=== PATIENT | female | born 1940 | race Caucasian/White ===

== ENCOUNTER 2017-10-24 12:11 | Observation (INO) | payer MEDICARE, OTHER ==
[~2017-10-24] VITALS: Ht 157.5 cm; Wt 62.0 kg
[2017-10-24 13:04] VITALS: BP 189/67
[2017-10-24] MEDS ORDERED: LISI-167 PO (13:16)
[2017-10-24] MEDS ORDERED: ESTR0.5T PO (13:16)
[2017-10-24] MEDS ORDERED: LEVO50TA PO (13:16)
[2017-10-24 13:30] LABS: BASOPHILS # (AUTO) 0.03 x10^3/uL (0-0.1); BASOPHILS % (AUTO) 1 % (0-1); EOSINOPHILS # (AUTO) 0.05 x10^3/uL (0-0.4); EOSINOPHILS % (AUTO) 1 % (1-7); LYMPHOCYTES # (AUTO) 1.96 x10^3/uL (1-3.4); LYMPHOCYTES % (AUTO) 33 % (22-44); MD NO; MEAN CORPUSCULAR HGB CONC 33.6 g/dL (32.4-35.8); MEAN CORPUSCULAR VOLUME 92.2 fL (80-100); MEAN PLATELET VOLUME 8.3 fL (7.4-10.4); MONOCYTES # (AUTO) 0.48 x10^3/uL (0.2-0.8); MONOCYTES % (AUTO) 8 % (2-9); NEUTROPHILS # (AUTO) 3.45 x10^3/uL (1.8-6.8); NEUTROPHILS % (AUTO) 58 % (42-75); PLATELET COUNT 162 x10^3/uL (130-400); RED BLOOD COUNT 4.35 x10^6/uL (3.82-5.3); RED CELL DISTRIBUTION WIDTH 13.6 % (9.6-15.2)
[2017-10-24 13:38] LABS: ANION GAP 6 mmol/L (5-15); CALCIUM 8.7 mg/dL (8.5-10.1); CHLORIDE 109 mmol/L (98-107); CREATININE 0.74 mg/dL (0.55-1.02)
[2017-10-24] MEDS ORDERED: CEFAZOLIN 1,000 MG ONE (14:31)
[2017-10-24] MEDS ORDERED: LIDOCAINE 2%, 20ML ONE (14:31)
[2017-10-24] MEDS ORDERED: CEFAZOLIN PMX 1GM/50ML 50 ML ONE (14:31)
[2017-10-24] MEDS ORDERED: FENTANYL PF 100 MCG/2ML ONE (14:31)
[2017-10-24] MEDS ORDERED: MIDAZOLAM 1 MG/ML, 5ML ONE (14:31)
[2017-10-24] MEDS ORDERED: ZOLPIDEM 5MG TABLET PO PRN (16:30)
[2017-10-24] MEDS ORDERED: ACETAMINOPHEN 325 MG TABLET PO PRN (16:30)
[2017-10-24] MEDS ORDERED: HYDROcodone/APAP 5/325 TABLET PO PRN (16:30)
[2017-10-24] MEDS ORDERED: ONDANSETRON 2MG/ML, 2ML IV PRN (16:30)
[2017-10-24] MEDS: SODIUM CHLORIDE 0.9% 1,000 ML IV SCH ×2 (16:34→19:52)
[2017-10-24] MEDS ORDERED: hydrALAzine 20 MG/ML, 1ML ONE (16:37)
[2017-10-24] MEDS: hydrALAzine 20 MG/ML, 1ML IV PRN ×2 (16:39→16:55)
[2017-10-24 16:40] VITALS: BP 206/78
[2017-10-24 16:56] VITALS: BP 173/90
[2017-10-24 17:07] VITALS: BP 139/66
[2017-10-24 18:24] VITALS: BP 127/57
[2017-10-24] MEDS: LISINOPRIL 10 MG TABLET PO SCH (19:51)
[2017-10-24] MEDS: SODIUM CHLORIDE FLUSH 10ML SYR IVF SCH (19:51)
[2017-10-24] MEDS ORDERED: morphine SULFATE 10 MG/ML, 1ML IVPush PRN (21:00)
[2017-10-24] MEDS: CEFAZOLIN PMX 1GM/50ML 50 ML IVPB SCH (22:34)
[2017-10-25 02:19] VITALS: BP 131/69
[2017-10-25] MEDS: SODIUM CHLORIDE 0.9% 1,000 ML IV SCH (04:13)
[2017-10-25] MEDS ORDERED: LEVOTHYROXINE 50 MCG TABLET PO SCH (06:00)
[2017-10-25 08:00] VITALS: BP 128/66
[2017-10-25] MEDS ORDERED: ESTRADIOL 0.5 MG TABLET PO SCH (09:00)
[2017-10-25] MEDS: CEFAZOLIN PMX 1GM/50ML 50 ML IVPB SCH (10:03)
[2017-10-25] MEDS: LISINOPRIL 10 MG TABLET PO SCH (10:04)
[2017-10-25] MEDS: SODIUM CHLORIDE FLUSH 10ML SYR IVF SCH (10:04)
== END 2017-10-25 13:11 | disposition home or self-care (01) ==
LOC: CACL 12:11 → ORIP 16:01 → 5SO 16:40 → DCLOUNGE 10-25 13:00
PROVIDERS: ADMIT Internal Medicine Cardiovascular Disease; ATTEND Internal Medicine Cardiovascular Disease
DX: I44.1 Atrioventricular block, second degree (principal); I35.1 Nonrheumatic aortic (valve) insufficiency; I34.0 Nonrheumatic mitral (valve) insufficiency; R06.02 Shortness of breath; I10 Essential (primary) hypertension; E78.00 Pure hypercholesterolemia, unspecified; E03.9 Hypothyroidism, unspecified
CPT/HCPCS: 33208; 36415; 71010; 80048; 85025; 93306; 96365; 96375; 99156; 99157; C1779; C1785; C1892; G0378; J0360; J0690; J2250; J2270; J3010; J3490